=== PATIENT | female | born 1940 | race Caucasian/White ===

== ENCOUNTER 2018-08-19 11:57 | Emergency (ER) | payer MEDICARE, BC ==
--- NOTE | 2018-08-19 20:50 | RAD ---
RIGHT WRIST THREE VIEWS: 08/19/18 A fracture is seen through the ulnar styloid process. It is probably acute but I cannot be 100% sure. Correlate with exact physical examination. Some arthritic changes are seen in the first carpometacar pal joint and between the scaphoid and trapezium. The carpal relationships appear normal except that the distance between the scaphoid and lunate is excessive at 3 mm. The possibility of scapholunate di ssociation is raised. There is a little deformity to the distal radius laterally which does appear ac flynn. IMPRESSION: 1. Ulnar styloid fracture, possibly acute. Correlate with physical exam. 2. 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 3. 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 Code T POS: HOME
== END 2018-08-19 12:57 | disposition home or self-care (01) ==
LOC: BURERS 11:57
DX: S52.611A Displaced fracture of right ulna styloid process, initial encounter for closed fracture (principal); B02.9 Zoster without complications; G47.30 Sleep apnea, unspecified; I10 Essential (primary) hypertension; Z79.899 Other long term (current) drug therapy; W22.8XXA Striking against or struck by other objects, initial encounter

== ENCOUNTER 2021-01-28 10:39 | Outpatient (CLI) | payer MEDICARE, BC | END 2021-01-28 10:40 | disposition home or self-care (01) | LOC: BURRAD 10:39 | PROVIDERS: ATTEND Nurse Practitioner Family | DX: M47.817 Spondylosis without myelopathy or radiculopathy, lumbosacral region (principal); M51.37 Other intervertebral disc degeneration, lumbosacral region | CPT/HCPCS: 72202 ==